=== PATIENT | female | born 1970 | race Caucasian/White ===

== ENCOUNTER 2023-05-04 13:48 | Outpatient (CLI) | payer BC | END 2023-05-04 13:49 | disposition home or self-care (01) | LOC: CSHLAB 13:48 | PROVIDERS: ATTEND Obstetrics & Gynecology | DX: Z01.818 Encounter for other preprocedural examination (principal); N90.60 Unspecified hypertrophy of vulva | CPT/HCPCS: 80048; 85027; 86850; 86900; 86901; 93005; 93010 ==

== ENCOUNTER 2023-05-06 07:30 | Day surgery (SDC) | payer BC ==
[2023-05-04 14:18] VITALS: BMI 41.3
[2023-05-04 15:57] LABS: Hematocrit 43.1 % (34.9-44.5); Hemoglobin 14.5 g/dL (12.0-15.5); Mean Corpuscular HGB CONC 33.6 g/dL (32.0-36.0); Mean Corpuscular Hemoglobin 30.9 pg (27.0-33.0); Mean Corpuscular Volume 91.7 fl (81.6-98.3); Mean Platelet Volume 9.9 fl (7.4-10.4); Platelet Count 389 10x3/uL (150-450); White Blood Cell (WBC) Count 8.3 10x3/uL (3.5-10.5)
[2023-05-04 16:10] LABS: Anion Gap 15 mmol/L (10-20); BUN (Urea Nitrogen) 14 mg/dL (9.8-20.1); Calc. Creatinine Clearance 0 mL/min (70-130); Carbon Dioxide 22 mmol/L (22-29); Chloride 108 mmol/L (98-107); Estimated GFR 85; Glucose 103 mg/dL (70-105); Potassium 4.6 mmol/L (3.5-5.1); Sodium 140 mmol/L (136-145)
[2023-05-06] MEDS ORDERED: PROPOFOL 20 ML ONE (08:29)
[2023-05-06] MEDS ORDERED: Midazolam HCl 2 mg/2 ml Vial ONE (08:30)
[2023-05-06] MEDS ORDERED: Dexamethasone 4 mg/ml Vial ONE (08:30)
[2023-05-06] MEDS ORDERED: Ondansetron PF 4 MG/2 ML Vial ONE ×2 (08:30→11:23)
[2023-05-06] MEDS ORDERED: Lidocaine 2% PF 5 ML VIAL ONE (08:30)
[2023-05-06] MEDS ORDERED: fentaNYL 50 mcg/mL 1 mL Vial ONE (08:30)
[2023-05-06] MEDS ORDERED: Famotidine/PF 20 mg/2ml Vial ONE (08:31)
[2023-05-06] MEDS ORDERED: Lidocaine 1% (PF) 30 ML VIAL ONE (08:35)
[2023-05-06] MEDS ORDERED: EPINEPHrine 1 MG/ML VIAL ONE (08:39)
[2023-05-06] MEDS ORDERED: Sevoflurane 250 ML INH ANEST BOTTLE ONE (09:26)
[2023-05-06] MEDS ORDERED: CEFAZOLIN 2 GM VIAL ONE (09:40)
[2023-05-06] MEDS ORDERED: Ketorolac Tromethamine 30 MG/ML VIAL ONE (10:19)
== END 2023-05-06 12:35 | disposition home or self-care (01) ==
LOC: CSHSDC 07:30
PROVIDERS: ATTEND Obstetrics & Gynecology
PROC: 0UQM0ZZ Repair Vulva, Open Approach (ICD-10-PCS; principal; 2023-05-06)
DX: N90.60 Unspecified hypertrophy of vulva (principal); E11.9 Type 2 diabetes mellitus without complications; N94.10 Unspecified dyspareunia; Z90.710 Acquired absence of both cervix and uterus; Z79.84 Long term (current) use of oral hypoglycemic drugs; Z88.2 Allergy status to sulfonamides
CPT/HCPCS: 80048; 85027; 86850; 86900; 86901; J0171; J1100; J1885; J2001; J2250; J2405; J2704; J3010; S0028

== ENCOUNTER 2023-11-13 15:32 | Outpatient (CLI) | payer BC ==
[~2023-11-13 15:32] MED LIST: Iopamidol 300 61% 100 ML VIAL FS ONE
== END 2023-11-13 15:33 | disposition home or self-care (01) ==
LOC: CSHCT 15:32
PROVIDERS: ATTEND Otolaryngology Otolaryngic Allergy
DX: M54.2 Cervicalgia (principal)
CPT/HCPCS: 70491; Q9967